=== PATIENT | male | born 1970 | race Caucasian/White ===

== ENCOUNTER 2021-05-07 17:46 | Observation (INO) ==
[2021-05-07] MEDS ORDERED: 0.9 % Sodium Chloride 1,000 ML IVC ONE (18:04)
[2021-05-07 18:41] LABS: Basophils # 0.1 K/mcL (0.0-0.2); Eosinophils # 0.1 K/mcL (0.0-0.6); Eosinophils % 1.4 %; Hematocrit 37.8 % (37.5-50.1); Hemoglobin 12.7 g/dL (12.9-16.9); Immature Granulocytes % 0.3 % (0-4); Lymphocytes # 2.6 K/mcL (0.6-4.6); Lymphocytes % 33.4 %; Mean Corpuscular HGB Conc 33.6 g/dL (31.6-35.5); Mean Corpuscular Hemoglobin 31.3 pg (28.0-33.3); Mean Corpuscular Volume 93.1 fL (83.0-100.0); Mean Platelet Volume 9.1 fL (9.4-12.4); Monocytes # 0.6 K/mcL (0.0-1.3); Neutrophils # 4.5 K/mcL (1.6-8.9); Platelet Count 224 K/mcL (140-400); Red Blood Count 4.06 M/mcL (4.19-5.50); Red Cell Distribution Width 13.3 % (11.5-14.5); Segmented Neutrophils % 56.9 %; White Blood Count 7.8 K/mcL (4.3-11.1)
[2021-05-07 19:01] LABS: Acetaminophen < 10 mcg/mL (10-20); BUN/Creatinine Ratio 26 (6-26); Blood Urea Nitrogen 18 mg/dL (6-20); Calcium 8.6 mg/dL (8.6-10.3); Carbon Dioxide 24 mEq/L (23-29); Chloride 104 mEq/L (98-107); Ethanol 74 mg/dL (Less than 10); Glucose 81 mg/dL (70-105); Osmolality,Calculated 283 (280-300); Potassium 3.8 mEq/L (3.5-5.1); Salicylate < 2.5 mg/dL (15.0-30.0); Sodium 136 mEq/L (136-145); eGFR For African Americans > 60 (> 60); eGFR For Non-African Americans > 60 (> 60)
[2021-05-07 19:11] LABS: Amphetamine Screen,Urine Negative ng/mL (Cutoff=1000); Barbiturate Screen,Urine Negative ng/mL (Cutoff=200); Benzodiazepines Screen,Urine Positive ng/mL (Cutoff=200); Cannabinoid Screen,Urine Negative ng/mL (Cutoff = 50); Cocaine Screen,Urine Negative ng/mL (Cutoff= 300); Opiate Screen,Urine Negative ng/mL (Cutoff=300); Phencyclidine Screen,Urine Negative ng/mL (Cutoff=25)
[2021-05-07] MEDS ORDERED: Tdap (Boostrix) Vaccine 0.5 ML SYRINGE IM ONE (20:45)
[2021-05-07] MEDS ORDERED: Ondansetron ODT 4 MG TAB.RAPDIS SL PRN (22:10)
[2021-05-07] MEDS ORDERED: Acetaminophen 325 MG TABLET PO PRN (22:10)
[2021-05-07] MEDS ORDERED: Naloxone 0.4 MG/ML INJ IVP PRN (22:10)
[2021-05-07] MEDS ORDERED: *HR* LORazepam 2 MG/ML VIAL IVP PRN ×2 (22:13)
[2021-05-07] MEDS: 0.9 % Sodium Chloride 1,000 ML IVC SCH (23:11)
[2021-05-07] MEDS: Folic Acid 1 MG TABLET PO SCH (23:12)
[2021-05-07] MEDS: Thiamine (B-1) 100 MG TABLET PO SCH (23:12)
[2021-05-08 06:57] LABS: Basophils # 0.1 K/mcL (0.0-0.2); Basophils % 0.9 %; Eosinophils # 0.2 K/mcL (0.0-0.6); Eosinophils % 2.5 %; Hematocrit 41.5 % (37.5-50.1); Hemoglobin 13.8 g/dL (12.9-16.9); Immature Granulocytes % 0.2 % (0-4); Lymphocytes # 2.7 K/mcL (0.6-4.6); Lymphocytes % 28.5 %; Mean Corpuscular HGB Conc 33.3 g/dL (31.6-35.5); Mean Corpuscular Hemoglobin 30.7 pg (28.0-33.3); Mean Corpuscular Volume 92.2 fL (83.0-100.0); Mean Platelet Volume 9.1 fL (9.4-12.4); Monocytes # 0.8 K/mcL (0.0-1.3); Monocytes % 8.5 %; Neutrophils # 5.7 K/mcL (1.6-8.9); Platelet Count 261 K/mcL (140-400); Red Cell Distribution Width 13.2 % (11.5-14.5); Segmented Neutrophils % 59.4 %; White Blood Count 9.6 K/mcL (4.3-11.1)
[2021-05-08 07:42] LABS: Alanine Aminotransferase 14 Units/L (7-52); Albumin 3.6 g/dL (3.5-5.7); Albumin/Globulin Ratio 1.8 (1.1-2.2); Alkaline Phosphatase 46 Units/L (34-104); Aspartate Amino Transferase 21 Units/L (13-39); BUN/Creatinine Ratio 21 (6-26); Bilirubin,Total 0.5 mg/dL (0.3-1.0); Blood Urea Nitrogen 16 mg/dL (6-20); Calcium 8.6 mg/dL (8.6-10.3); Carbon Dioxide 26 mEq/L (23-29); Chloride 110 mEq/L (98-107); Ethanol < 10 mg/dL (Less than 10); Glucose 81 mg/dL (70-105); Magnesium 1.9 mg/dL (1.6-2.6); Osmolality,Calculated 296 (280-300); Potassium 4.1 mEq/L (3.5-5.1); Sodium 143 mEq/L (136-145); Total Protein 5.6 g/dL (6.4-8.9); eGFR For African Americans > 60 (> 60); eGFR For Non-African Americans > 60 (> 60)
[2021-05-08] MEDS: Thiamine (B-1) 100 MG TABLET PO SCH (08:51)
[2021-05-08] MEDS: 0.9 % Sodium Chloride 1,000 ML IVC SCH (08:51)
[2021-05-08] MEDS: Folic Acid 1 MG TABLET PO SCH (08:51)
[2021-05-08] MEDS ORDERED: lisinopriL 5 MG TABLET PO SCH (17:30)
[2021-05-08] MEDS: lisinopriL 5 MG TABLET PO SCH (20:22)
[2021-05-09] MEDS: lisinopriL 5 MG TABLET PO SCH (08:14)
[2021-05-09] MEDS: Thiamine (B-1) 100 MG TABLET PO SCH (08:14)
[2021-05-09] MEDS: Folic Acid 1 MG TABLET PO SCH (08:14)
[2021-05-09] MEDS ORDERED: Nicotine 21 MG PATCH.TD24 TD SCH (09:00)
[2021-05-09 12:39] VITALS: BP 169/75; PULSE 53; TEMP 98; O2SAT 97
== END 2021-05-09 18:04 | disposition home or self-care (01) ==
LOC: EMEROOARM 17:46 → 3BNU 17:46 → SUATTDRO 22:05 → 3BNU 22:09
PROVIDERS: ADMIT Student in an Organized Health Care Education/Training Program; ATTEND Nurse Practitioner

== ENCOUNTER → 2021-05-10 10:50 | Observation (INO) ==
[2021-05-10 09:36] VITALS: BP 150/99; PULSE 67; TEMP 98.6; O2SAT 100
[~2021-05-10 10:50] MED LIST: Folic Acid 1 MG TABLET PO SCH; Ibuprofen 400 MG TABLET PO PRN; Thiamine (B-1) 100 MG TABLET PO SCH; hydrOXYzine pamoate 25 MG CAPSULE PO PRN; lisinopriL 5 MG TABLET PO SCH; traZODone 50 MG TABLET PO PRN
== END | disposition home or self-care (01) ==
LOC: 1ANU
PROVIDERS: ADMIT Psychiatry & Neurology Psychiatry; ATTEND Psychiatry & Neurology Psychiatry